=== PATIENT | female | born 1985 | race Caucasian/White ===

== ENCOUNTER 2016-11-16 23:28 | Emergency (ER) | payer MEDICAID ==
[~2016-11-16] VITALS: Ht 167.6 cm; Wt 74.7 kg
[~2016-11-16 23:28] MED LIST: ALBU0.63 NEB; AMOX-291 PO; ESOM20CA PO; OMEP20CA9; OMEP20CA9 PO; PREN1TAB27 PO
[2016-11-16 23:32] VITALS: BP 122/85
== END 2016-11-17 01:19 | disposition home or self-care (01) ==
LOC: ED 23:59
DX: F41.1 Generalized anxiety disorder (principal); J45.909 Unspecified asthma, uncomplicated
CPT/HCPCS: 93005; 99284

== ENCOUNTER 2017-01-27 01:37 | Emergency (ER) | payer MEDICAID ==
[~2017-01-27] VITALS: Ht 167.6 cm; Wt 73.7 kg
[2017-01-27 02:55] VITALS: BP 108/69
== END 2017-01-27 04:46 | disposition home or self-care (01) ==
LOC: ED 04:45
DX: J20.9 Acute bronchitis, unspecified (principal); F17.210 Nicotine dependence, cigarettes, uncomplicated; K21.9 Gastro-esophageal reflux disease without esophagitis
CPT/HCPCS: 71020; 93005; 99284

== ENCOUNTER 2017-05-12 00:42 | Emergency (ER) | payer MEDICAID ==
[~2017-05-12] VITALS: Ht 167.6 cm; Wt 73.0 kg
[2017-05-12] MEDS ORDERED: OMEP20TA62 PO (01:06)
[2017-05-12 02:56] VITALS: BP 103/60
== END 2017-05-12 02:56 | disposition home or self-care (01) ==
LOC: ED 02:04
DX: R05 Cough (principal); K21.9 Gastro-esophageal reflux disease without esophagitis; Z90.49 Acquired absence of other specified parts of digestive tract
CPT/HCPCS: 71020; 93005; 99284

== ENCOUNTER 2017-06-02 00:45 | Emergency (ER) | payer MEDICAID ==
[~2017-06-02] VITALS: Ht 167.6 cm; Wt 72.3 kg
[~2017-06-02 00:45] MED LIST changes: +OMEP20TA62 PO
[2017-06-02 00:48] VITALS: BP 128/88
[2017-06-02] MEDS ORDERED: LORazepam 1MG TABLET ONE (01:17)
[2017-06-02] MEDS ORDERED: LORazepam 1MG TABLET PO ONE (01:30)
== END 2017-06-02 01:43 | disposition home or self-care (01) ==
LOC: ED 01:20
DX: F41.1 Generalized anxiety disorder (principal); R06.4 Hyperventilation; F17.200 Nicotine dependence, unspecified, uncomplicated
CPT/HCPCS: 99283

== ENCOUNTER 2017-06-29 03:37 | Emergency (ER) | payer MEDICAID ==
[~2017-06-29] VITALS: Ht 165.1 cm; Wt 72.0 kg
[2017-06-29 06:25] VITALS: BP 102/65
== END 2017-06-29 06:26 | disposition home or self-care (01) ==
LOC: ED 03:57
DX: R06.00 Dyspnea, unspecified (principal); F41.1 Generalized anxiety disorder; K21.9 Gastro-esophageal reflux disease without esophagitis; J45.909 Unspecified asthma, uncomplicated; Z90.49 Acquired absence of other specified parts of digestive tract
CPT/HCPCS: 71020; 93005; 99284

== ENCOUNTER 2017-07-09 15:27 | Emergency (ER) | payer MEDICAID ==
[~2017-07-09] VITALS: Ht 165.1 cm; Wt 69.3 kg
[2017-07-09 15:35] VITALS: BP 120/83
[2017-07-09] MEDS ORDERED: ALBUTEROL/IPRATROPIUM 2.5MG/0.5MG, 3 ML NPPB ONE ×2 (16:00→17:00)
[2017-07-09] MEDS ORDERED: ALBUTEROL/IPRATROPIUM 2.5MG/0.5MG, 3 ML ONE (16:58)
== END 2017-07-09 17:21 | disposition home or self-care (01) ==
LOC: ED 17:11
DX: J98.01 Acute bronchospasm (principal); F41.1 Generalized anxiety disorder; J44.9 Chronic obstructive pulmonary disease, unspecified; K21.9 Gastro-esophageal reflux disease without esophagitis; Z87.891 Personal history of nicotine dependence
CPT/HCPCS: 71020; 94640; 99284; J7512

== ENCOUNTER 2017-07-09 22:23 | Emergency (ER) | payer MEDICAID ==
[~2017-07-09] VITALS: Ht 162.6 cm; Wt 69.9 kg
[2017-07-09 22:30] VITALS: BP 110/70
[2017-07-10] MEDS ORDERED: LORATADINE 10 MG TABLET PO ONE
== END 2017-07-10 00:15 | disposition home or self-care (01) ==
LOC: ED 23:44
DX: J20.9 Acute bronchitis, unspecified (principal); J45.909 Unspecified asthma, uncomplicated; K21.9 Gastro-esophageal reflux disease without esophagitis; F17.200 Nicotine dependence, unspecified, uncomplicated; Z90.49 Acquired absence of other specified parts of digestive tract
CPT/HCPCS: 93005; 99283

== ENCOUNTER 2017-07-25 00:11 | Emergency (ER) | payer MEDICAID ==
[~2017-07-25] VITALS: Ht 165.1 cm; Wt 70.9 kg
[2017-07-25] MEDS ORDERED: MAALOX/HYOSCYAMINE/LIDOCAINE 45 ML BTL ONE (02:58)
[2017-07-25 03:00] VITALS: BP 100/54
[2017-07-25] MEDS ORDERED: MAALOX/HYOSCYAMINE/LIDOCAINE 45 ML BTL PO ONE (03:00)
== END 2017-07-25 04:00 | disposition home or self-care (01) ==
LOC: ED 02:01
DX: K21.9 Gastro-esophageal reflux disease without esophagitis (principal); Z90.49 Acquired absence of other specified parts of digestive tract; R07.89 Other chest pain; F17.210 Nicotine dependence, cigarettes, uncomplicated
CPT/HCPCS: 93005; 99283

== ENCOUNTER 2017-08-26 06:25 | Emergency (ER) | payer MEDICAID ==
[~2017-08-26] VITALS: Ht 165.1 cm; Wt 73.3 kg
[2017-08-26] MEDS ORDERED: ONDANSETRON 2MG/ML, 2ML IVPush ONE (07:30)
[2017-08-26] MEDS ORDERED: MORPHINE SULFATE 4 MG/ML, 1ML IVPush PRN (07:30)
[2017-08-26] MEDS ORDERED: SODIUM CHLORIDE FLUSH 10ML SYR IVF ONE (07:30)
[2017-08-26] MEDS ORDERED: SODIUM CHLORIDE 0.9% 1,000ML IVBOLUS ONE (07:30)
[2017-08-26] MEDS ORDERED: MORPHINE SULFATE 4 MG/ML, 1ML ONE (07:48)
[2017-08-26] MEDS ORDERED: ONDANSETRON 2MG/ML, 2ML ONE (07:49)
[2017-08-26 07:52] LABS: BASOPHILS # (AUTO) 0.05 x10^3/uL (0-0.1); BASOPHILS % (AUTO) 1 % (0-1); EOSINOPHILS % (AUTO) 2 % (1-7); LYMPHOCYTES # (AUTO) 3.78 x10^3/uL (1-3.4); LYMPHOCYTES % (AUTO) 37 % (22-44); MD NO; MEAN CORPUSCULAR HEMOGLOBIN 30.1 pg (27.0-34.8); MEAN CORPUSCULAR HGB CONC 33.7 g/dL (32.4-35.8); MEAN CORPUSCULAR VOLUME 89.3 fL (80-100); MONOCYTES # (AUTO) 0.77 x10^3/uL (0.2-0.8); MONOCYTES % (AUTO) 7 % (2-9); NEUTROPHILS # (AUTO) 5.52 x10^3/uL (1.8-6.8); NEUTROPHILS % (AUTO) 54 % (42-75); PLATELET COUNT 231 x10^3/uL (130-400); RED BLOOD COUNT 4.49 x10^6/uL (3.82-5.3)
[2017-08-26 07:57] LABS: HCG UR SG 1.026 (1.003-1.030); MICROSCOPIC AUTO
[2017-08-26 08:01] LABS: CULTURE INDICATED? YES
[2017-08-26 08:05] LABS: ALANINE AMINOTRANSFERASE 29 U/L (12-78); ALBUMIN 3.6 g/dL (3.4-5.0); ANION GAP 4 mmol/L (5-15); CALCIUM 8.6 mg/dL (8.5-10.1); CHLORIDE 109 mmol/L (98-107)
[2017-08-26 08:08] LABS: ALKALINE PHOSPHATASE 59 U/L (45-117); BILIRUBIN,TOTAL 0.2 mg/dL (0.2-1.0); CREATININE 0.65 mg/dL (0.55-1.02); TOTAL PROTEIN 6.9 g/dL (6.4-8.2)
[2017-08-26] MEDS ORDERED: CEFTRIAXONE PMX 1GM/50ML 50 ML ONE (09:22)
[2017-08-26] MEDS ORDERED: CEFTRIAXONE PMX 1GM/50ML 50 ML IV ONE (09:30)
[2017-08-26 10:29] VITALS: BP 100/66
== END 2017-08-26 10:54 | disposition home or self-care (01) ==
LOC: ED 09:30
DX: N30.90 Cystitis, unspecified without hematuria (principal); K21.9 Gastro-esophageal reflux disease without esophagitis; F17.200 Nicotine dependence, unspecified, uncomplicated; Z90.49 Acquired absence of other specified parts of digestive tract
CPT/HCPCS: 36415; 74021; 76770; 80053; 81001; 81025; 83690; 85025; 87086; 96365; 96375; 99285; J0696; J2405; J7030

== ENCOUNTER 2017-10-29 03:01 | Emergency (ER) | payer MEDICAID ==
[~2017-10-29] VITALS: Ht 165.1 cm; Wt 72.9 kg
[2017-10-29] MEDS ORDERED: MAALOX/HYOSCYAMINE/LIDOCAINE 45 ML BTL PO ONE (03:30)
[2017-10-29] MEDS ORDERED: PANTOPRAZOLE 20MG TABLET PO ONE (03:30)
[2017-10-29] MEDS ORDERED: PANTOPRAZOLE 20MG TABLET ONE (03:33)
[2017-10-29] MEDS ORDERED: MAALOX/HYOSCYAMINE/LIDOCAINE 45 ML BTL ONE (03:33)
[2017-10-29 03:37] VITALS: BP 96/63
== END 2017-10-29 03:56 | disposition home or self-care (01) ==
LOC: ED 03:30
DX: K21.9 Gastro-esophageal reflux disease without esophagitis (principal); J45.909 Unspecified asthma, uncomplicated; Z90.49 Acquired absence of other specified parts of digestive tract; F17.210 Nicotine dependence, cigarettes, uncomplicated
CPT/HCPCS: 93005; 99283

== ENCOUNTER 2017-12-01 12:58 | Emergency (ER) | payer MEDICAID ==
[~2017-12-01] VITALS: Ht 165.1 cm; Wt 72.2 kg
[2017-12-01 13:05] VITALS: BP 114/80
[2017-12-01 13:36] LABS: CULTURE INDICATED? NO; MICROSCOPIC NOT IND
== END 2017-12-01 16:32 | disposition home or self-care (01) ==
LOC: ED 14:10
DX: R10.9 Unspecified abdominal pain (principal); K21.9 Gastro-esophageal reflux disease without esophagitis
CPT/HCPCS: 36415; 74176; 81003; 84703; 99285

== ENCOUNTER 2018-01-18 22:17 | Emergency (ER) | payer MEDICAID ==
[~2018-01-18] VITALS: Ht 165.1 cm; Wt 73.5 kg
[2018-01-18 22:18] VITALS: BP 117/81
[2018-01-18] MEDS ORDERED: ALBUTEROL SULFATE 2.5 MG/3 ML ONE (22:53)
[2018-01-18] MEDS ORDERED: ALBUTEROL SULFATE 2.5 MG/3 ML NPPB ONE (23:00)
== END 2018-01-19 00:09 | disposition home or self-care (01) ==
LOC: ED 23:59
DX: J45.20 Mild intermittent asthma, uncomplicated (principal); J30.2 Other seasonal allergic rhinitis; Z90.49 Acquired absence of other specified parts of digestive tract
CPT/HCPCS: 94640; 99283; J7613

== ENCOUNTER 2018-04-28 23:28 | Emergency (ER) | payer MEDICAID ==
[~2018-04-28] VITALS: Ht 165.1 cm; Wt 75.0 kg
[2018-04-29 00:23] VITALS: BP 95/50
[2018-04-29] MEDS ORDERED: MAALOX/HYOSCYAMINE/LIDOCAINE 45 ML BTL PO ONE (00:30)
[2018-04-29] MEDS ORDERED: MAALOX/HYOSCYAMINE/LIDOCAINE 45 ML BTL ONE (00:43)
== END 2018-04-29 02:04 | disposition home or self-care (01) ==
LOC: ED 23:59
DX: K21.9 Gastro-esophageal reflux disease without esophagitis (principal); R05 Cough; R09.81 Nasal congestion; J45.909 Unspecified asthma, uncomplicated; F17.200 Nicotine dependence, unspecified, uncomplicated; Z90.89 Acquired absence of other organs; Z90.49 Acquired absence of other specified parts of digestive tract
CPT/HCPCS: 71046; 93005; 99284

== ENCOUNTER 2018-08-10 21:27 | Emergency (ER) | payer MEDICAID ==
[~2018-08-10] VITALS: Ht 165.1 cm; Wt 76.7 kg
[2018-08-10 21:29] VITALS: BP 118/74
[2018-08-10] MEDS ORDERED: ALBUTEROL/IPRATROPIUM 2.5MG/0.5MG, 3 ML NPPB PRN (22:00)
[2018-08-10] MEDS ORDERED: ALBUTEROL/IPRATROPIUM 2.5MG/0.5MG, 3 ML ONE (22:01)
[2018-08-10] MEDS ORDERED: PENICILLIN VK 500MG TABLET ONE (22:49)
== END 2018-08-10 23:01 | disposition home or self-care (01) ==
LOC: ED 22:02
DX: J06.9 Acute upper respiratory infection, unspecified (principal); Z90.49 Acquired absence of other specified parts of digestive tract; F17.210 Nicotine dependence, cigarettes, uncomplicated
CPT/HCPCS: 71046; 94640; 99283; J7512

== ENCOUNTER 2018-09-01 05:12 | Emergency (ER) | payer MEDICAID ==
[~2018-09-01] VITALS: Ht 165.1 cm; Wt 77.2 kg
[2018-09-01] MEDS ORDERED: MAALOX/HYOSCYAMINE/LIDOCAINE 45 ML BTL PO ONE (05:30)
[2018-09-01] MEDS ORDERED: FAMOTIDINE 20 MG TABLET PO ONE (05:30)
--- NOTE | 2018-09-01 05:31 | NUR ---
"I HAVE A HIATAL HERNIA. I AM HAVING CENTER CHEST PAIN AND BACK PAIN. I CAN'T SLEEP." PER TRIAGE NOTE
[2018-09-01] MEDS ORDERED: MAALOX/HYOSCYAMINE/LIDOCAINE 45 ML BTL ONE (05:47)
[2018-09-01] MEDS ORDERED: FAMOTIDINE 20 MG TABLET ONE (05:47)
--- NOTE | 2018-09-01 05:51 | NUR ---
GIVEN MEDS PER MD ORDER
[2018-09-01 05:56] LABS: BASOPHILS # (AUTO) 0.14 x10^3/uL (0-0.1); BASOPHILS % (AUTO) 1 % (0-1); EOSINOPHILS # (AUTO) 0.04 x10^3/uL (0-0.4); EOSINOPHILS % (AUTO) 0 % (1-7); LYMPHOCYTES % (AUTO) 30 % (22-44); MD NO; MEAN CORPUSCULAR HEMOGLOBIN 30.7 pg (27.0-34.8); MEAN CORPUSCULAR HGB CONC 34.5 g/dL (32.4-35.8); MEAN CORPUSCULAR VOLUME 88.8 fL (80-100); MONOCYTES # (AUTO) 0.92 x10^3/uL (0.2-0.8); MONOCYTES % (AUTO) 7 % (2-9); NEUTROPHILS # (AUTO) 8.02 x10^3/uL (1.8-6.8); NEUTROPHILS % (AUTO) 62 % (42-75); PLATELET COUNT 241 x10^3/uL (130-400); RED BLOOD COUNT 4.52 x10^6/uL (3.82-5.3); RED CELL DISTRIBUTION WIDTH 13.1 % (9.6-15.2)
[2018-09-01 06:09] LABS: ALANINE AMINOTRANSFERASE 69 U/L (12-78); ALBUMIN 3.6 g/dL (3.4-5.0); ANION GAP 5 mmol/L (5-15); CALCIUM 8.5 mg/dL (8.5-10.1); CHLORIDE 111 mmol/L (98-107); CREATININE 0.53 mg/dL (0.55-1.02)
[2018-09-01 06:14] LABS: ALKALINE PHOSPHATASE 57 U/L (45-117); BILIRUBIN,TOTAL 0.3 mg/dL (0.2-1.0); TOTAL PROTEIN 7.1 g/dL (6.4-8.2); TROPONIN I < 0.015 ng/mL (0.000-0.045)
[2018-09-01] MEDS ORDERED: OMNIPAQUE 350 MG/ML, 100ML BOTTLE ONE (07:04)
--- NOTE | 2018-09-01 07:09 | NUR ---
BEDSIDE REPORT FROM RODERICK ARNDT. PT IN CT.
[2018-09-01 07:46] VITALS: BP 103/59
== END 2018-09-01 08:47 | disposition home or self-care (01) ==
LOC: ED 06:15
DX: K29.00 Acute gastritis without bleeding (principal); K21.9 Gastro-esophageal reflux disease without esophagitis; J45.909 Unspecified asthma, uncomplicated; F17.200 Nicotine dependence, unspecified, uncomplicated
CPT/HCPCS: 36415; 74021; 74177; 80053; 83690; 84484; 84703; 85025; 86677; 93005; 99284; Q9967

== ENCOUNTER 2018-10-09 06:26 | Emergency (ER) | payer MEDICAID ==
[~2018-10-09] VITALS: Ht 165.1 cm; Wt 77.0 kg
--- NOTE | 2018-10-09 06:41 | NUR ---
PLEASANT LADY HERE REPORTING THAT FOR THE LAST SEVERAL DAYS SHE HAS HAD A COUGH THAT IS OCCASSIONALLY PRODUCTIVE, UNKNOWN COLOR, ALSO DESCRIBES WHEEZING. CURRENTLY NO RESP DISTRESS.
--- NOTE | 2018-10-09 06:56 | NUR ---
Report from Linda ARNDT.
[2018-10-09 07:35] LABS: BASOPHILS # (AUTO) 0.04 x10^3/uL (0-0.1); BASOPHILS % (AUTO) 1 % (0-1); EOSINOPHILS # (AUTO) 0.17 x10^3/uL (0-0.4); EOSINOPHILS % (AUTO) 2 % (1-7); LYMPHOCYTES # (AUTO) 2.96 x10^3/uL (1-3.4); LYMPHOCYTES % (AUTO) 33 % (22-44); MD NO; MEAN CORPUSCULAR HEMOGLOBIN 29.6 pg (27.0-34.8); MEAN CORPUSCULAR HGB CONC 33.8 g/dL (32.4-35.8); MEAN CORPUSCULAR VOLUME 87.7 fL (80-100); MEAN PLATELET VOLUME 8.1 fL (7.4-10.4); MONOCYTES # (AUTO) 0.67 x10^3/uL (0.2-0.8); MONOCYTES % (AUTO) 8 % (2-9); NEUTROPHILS # (AUTO) 5.01 x10^3/uL (1.8-6.8); NEUTROPHILS % (AUTO) 57 % (42-75); PLATELET COUNT 225 x10^3/uL (130-400); RED BLOOD COUNT 4.72 x10^6/uL (3.82-5.3); RED CELL DISTRIBUTION WIDTH 13.2 % (9.6-15.2)
--- NOTE | 2018-10-09 07:38 | NUR ---
Pt is resting in bed with eyes closed, respirations equal and non labored. NAD. Pt is connected to the monitor. Call light within reach.
[2018-10-09 07:44] LABS: ALBUMIN 3.4 g/dL (3.4-5.0); ANION GAP 6 mmol/L (5-15); CHLORIDE 111 mmol/L (98-107); CREATININE 0.73 mg/dL (0.55-1.02)
[2018-10-09 07:48] LABS: TROPONIN I < 0.015 ng/mL (0.000-0.045)
[2018-10-09 08:33] VITALS: BP 99/58
--- NOTE | 2018-10-09 08:33 | NUR ---
Pt is resting in bed with eyes closed, respirations equal and non labored. NAD. Pt is connected to the monitor. Call light within reach.
--- NOTE | 2018-10-09 08:58 | NUR ---
Patient given discharge instructions and they have confirmed that they understand the instructions. Patient ambulatory with steady gait.
== END 2018-10-09 08:59 | disposition home or self-care (01) ==
LOC: ED 07:51
DX: R07.89 Other chest pain (principal); R06.00 Dyspnea, unspecified; K21.9 Gastro-esophageal reflux disease without esophagitis; Z90.89 Acquired absence of other organs; Z90.49 Acquired absence of other specified parts of digestive tract
CPT/HCPCS: 36415; 71046; 80048; 82040; 84484; 85025; 93005; 99284

== ENCOUNTER 2019-03-07 22:59 | Emergency (ER) | payer MEDICAID, OTHER ==
[~2019-03-07] VITALS: Ht 165.1 cm; Wt 78.8 kg
[2019-03-08 00:33] VITALS: BP 97/57
== END 2019-03-08 00:35 ==
LOC: ED 03-08 00:10
DX: J45.909 Unspecified asthma, uncomplicated (principal); F17.200 Nicotine dependence, unspecified, uncomplicated; K21.9 Gastro-esophageal reflux disease without esophagitis; Z90.49 Acquired absence of other specified parts of digestive tract
CPT/HCPCS: 36415; 71046; 80048; 82040; 85025; 93005; 94640; 99284; J7613

== ENCOUNTER 2019-03-08 22:09 | Emergency (ER) | payer OTHER ==
[~2019-03-08] VITALS: Ht 165.1 cm; Wt 78.9 kg
[2019-03-08 22:12] VITALS: BP 120/75
== END 2019-03-09 01:00 | disposition home or self-care (01) ==
LOC: ED 23:59
DX: J98.01 Acute bronchospasm (principal); F17.200 Nicotine dependence, unspecified, uncomplicated
CPT/HCPCS: 94640; 94664; 99283; J7512; J7613; J7644

== ENCOUNTER 2019-05-18 01:57 | Emergency (ER) | payer OTHER ==
[~2019-05-18] VITALS: Ht 167.6 cm; Wt 80.0 kg
[2019-05-18] MEDS ORDERED: MAALOX/HYOSCYAMINE/LIDOCAINE 45 ML BTL ONE (02:54)
[2019-05-18] MEDS ORDERED: MAALOX/HYOSCYAMINE/LIDOCAINE 45 ML BTL PO ONE (03:00)
--- NOTE | 2019-05-18 03:00 | NUR ---
RN to bedside, patient has already been seen by primary provider, but no orders placed at the time. Patient laying on right side. Alert, oriented. Patient reports shortness of breath with discomfort. Auscultating breath sounds patient reports feeling sternal pain at maximum inhale. Breath sounds are clear. patient attached to monitor, VSS. While transcribing clinical screen RN noted orders. Informed patient of labs, imaging and medications. RN to bedside to adminstered prescribed medication (see MAR) and informed patient she would see either a identification technician or a oil and gas field technician. At this time identification technician arrove to bedside. Patient aware. Awaiting lab results and imaging.
[2019-05-18 03:07] LABS: BASOPHILS # (AUTO) 0.05 x10^3/uL (0-0.1); BASOPHILS % (AUTO) 1 % (0-1); EOSINOPHILS # (AUTO) 0.12 x10^3/uL (0-0.4); EOSINOPHILS % (AUTO) 1 % (1-7); LYMPHOCYTES # (AUTO) 4.16 x10^3/uL (1-3.4); LYMPHOCYTES % (AUTO) 39 % (22-44); MD NO; MEAN CORPUSCULAR HEMOGLOBIN 30.7 pg (27.0-34.8); MEAN CORPUSCULAR HGB CONC 33.6 g/dL (32.4-35.8); MEAN CORPUSCULAR VOLUME 91.4 fL (80-100); MEAN PLATELET VOLUME 7.8 fL (7.4-10.4); MONOCYTES # (AUTO) 0.79 x10^3/uL (0.2-0.8); MONOCYTES % (AUTO) 7 % (2-9); NEUTROPHILS # (AUTO) 5.63 x10^3/uL (1.8-6.8); NEUTROPHILS % (AUTO) 52 % (42-75); PLATELET COUNT 235 x10^3/uL (130-400); RED BLOOD COUNT 4.36 x10^6/uL (3.82-5.3); RED CELL DISTRIBUTION WIDTH 12.9 % (9.6-15.2)
[2019-05-18 03:17] LABS: ALBUMIN 3.1 g/dL (3.4-5.0); ANION GAP 5 mmol/L (5-15); CALCIUM 7.9 mg/dL (8.5-10.1); CHLORIDE 112 mmol/L (98-107)
--- NOTE | 2019-05-18 03:18 | NUR ---
resting comfortably, imaging techs at bedside.
[2019-05-18 03:23] LABS: ALANINE AMINOTRANSFERASE 20 U/L (12-78); ALKALINE PHOSPHATASE 58 U/L (45-117); BILIRUBIN,TOTAL 0.2 mg/dL (0.2-1.0); CREATININE 0.71 mg/dL (0.55-1.02); TOTAL PROTEIN 6.4 g/dL (6.4-8.2)
[2019-05-18 04:08] VITALS: BP 103/68
--- NOTE | 2019-05-18 04:09 | NUR ---
Patient sleeping. Awaiting reevaluation by provider.
== END 2019-05-18 04:46 | disposition home or self-care (01) ==
LOC: ED 04:35
DX: K21.9 Gastro-esophageal reflux disease without esophagitis (principal); R10.13 Epigastric pain; R11.0 Nausea; K44.9 Diaphragmatic hernia without obstruction or gangrene; F17.200 Nicotine dependence, unspecified, uncomplicated; Z90.49 Acquired absence of other specified parts of digestive tract; J45.909 Unspecified asthma, uncomplicated
CPT/HCPCS: 36415; 71045; 80053; 83690; 84703; 85025; 93005; 99284

== ENCOUNTER 2019-05-26 05:30 | Emergency (ER) | payer OTHER ==
[~2019-05-26] VITALS: Ht 165.1 cm; Wt 83.3 kg
--- NOTE | 2019-05-26 05:45 | NUR ---
PT IN [facility] IN [facility]. DR CASTREJON AT FOR PT HISTORY AND ASSESSMENT.
[2019-05-26] MEDS ORDERED: MAALOX/HYOSCYAMINE/LIDOCAINE 45 ML BTL ONE (06:00)
[2019-05-26] MEDS ORDERED: FAMOTIDINE 20 MG TABLET PO ONE (06:00)
[2019-05-26] MEDS ORDERED: MAALOX/HYOSCYAMINE/LIDOCAINE 45 ML BTL PO ONE (06:00)
[2019-05-26] MEDS ORDERED: FAMOTIDINE 20 MG TABLET ONE (06:00)
--- NOTE | 2019-05-26 06:07 | NUR ---
PT MEDICATED PER MAR. PT VSS AT THIS TIME
[2019-05-26 06:10] LABS: BASOPHILS # (AUTO) 0.05 x10^3/uL (0-0.1); BASOPHILS % (AUTO) 1 % (0-1); EOSINOPHILS # (AUTO) 0.11 x10^3/uL (0-0.4); EOSINOPHILS % (AUTO) 1 % (1-7); LYMPHOCYTES # (AUTO) 3.29 x10^3/uL (1-3.4); LYMPHOCYTES % (AUTO) 32 % (22-44); MD NO; MEAN CORPUSCULAR HEMOGLOBIN 30.5 pg (27.0-34.8); MEAN CORPUSCULAR VOLUME 89.6 fL (80-100); MEAN PLATELET VOLUME 7.4 fL (7.4-10.4); MONOCYTES # (AUTO) 0.82 x10^3/uL (0.2-0.8); MONOCYTES % (AUTO) 8 % (2-9); NEUTROPHILS # (AUTO) 6.04 x10^3/uL (1.8-6.8); NEUTROPHILS % (AUTO) 59 % (42-75); PLATELET COUNT 218 x10^3/uL (130-400); RED BLOOD COUNT 4.62 x10^6/uL (3.82-5.3); RED CELL DISTRIBUTION WIDTH 12.8 % (9.6-15.2)
[2019-05-26 06:22] LABS: ALANINE AMINOTRANSFERASE 22 U/L (12-78); ALBUMIN 3.3 g/dL (3.4-5.0); ANION GAP 4 mmol/L (5-15); CALCIUM 8.1 mg/dL (8.5-10.1); CHLORIDE 109 mmol/L (98-107); CREATININE 0.79 mg/dL (0.55-1.02)
[2019-05-26 06:27] LABS: ALKALINE PHOSPHATASE 69 U/L (45-117); BILIRUBIN,TOTAL 0.2 mg/dL (0.2-1.0); TOTAL PROTEIN 6.8 g/dL (6.4-8.2); TROPONIN I < 0.015 ng/mL (0.000-0.045)
--- NOTE | 2019-05-26 06:32 | NUR ---
PT TO XRAY AT THIS TIME.
--- NOTE | 2019-05-26 06:55 | NUR ---
REPORT RECEIVED FROM YRIS LEÓN. PLAN OF CARE DISCUSSED.
[2019-05-26 07:02] VITALS: BP 108/59
== END 2019-05-26 07:27 | disposition home or self-care (01) ==
LOC: ED 06:01
DX: K21.0 Gastro-esophageal reflux disease with esophagitis (principal); R07.89 Other chest pain; F17.210 Nicotine dependence, cigarettes, uncomplicated; J45.909 Unspecified asthma, uncomplicated
CPT/HCPCS: 36415; 71045; 80053; 83690; 84484; 84703; 85025; 85379; 93005; 99284

== ENCOUNTER 2019-05-26 17:24 | Emergency (ER) | payer OTHER ==
[~2019-05-26] VITALS: Ht 165.1 cm; Wt 79.2 kg
[2019-05-26 17:40] VITALS: BP 122/82
[2019-05-26] MEDS ORDERED: DIPH,PERTUSS(ACELL),TET VAC/PF 0.5 ML IM-VACC ONE ×2 (18:00→18:10)
--- NOTE | 2019-05-26 18:57 | NUR ---
Patient/Caregiver given discharge instructions and they have confirmed that they understand the instructions. Patient ambulatory with steady gait.
== END 2019-05-26 18:58 | disposition home or self-care (01) ==
LOC: ED 18:52
DX: S61.211A Laceration without foreign body of left index finger without damage to nail, initial encounter (principal); F17.200 Nicotine dependence, unspecified, uncomplicated; W23.0XXA Caught, crushed, jammed, or pinched between moving objects, initial encounter; Y93.89 Activity, other specified; Y92.410 Unspecified street and highway as the place of occurrence of the external cause; Y99.8 Other external cause status
CPT/HCPCS: 12041; 90471; 90715; 99284

== ENCOUNTER 2019-06-20 01:13 | Emergency (ER) | payer OTHER ==
[~2019-06-20] VITALS: Ht 165.1 cm; Wt 81.5 kg
[2019-06-20 01:17] VITALS: BP 127/88
[2019-06-20] MEDS ORDERED: ONDANSETRON ODT 4 MG ONE (01:57)
[2019-06-20] MEDS ORDERED: KETOROLAC 60 MG/2 ML ONE (01:57)
[2019-06-20] MEDS ORDERED: KETOROLAC 60 MG/2 ML IM ONE (02:00)
[2019-06-20] MEDS ORDERED: ONDANSETRON ODT 4 MG PO ONE (02:00)
[2019-06-20 02:20] LABS: BASOPHILS % (AUTO) 1 % (0-1); EOSINOPHILS # (AUTO) 0.11 x10^3/uL (0-0.4); EOSINOPHILS % (AUTO) 1 % (1-7); LYMPHOCYTES # (AUTO) 4.52 x10^3/uL (1-3.4); LYMPHOCYTES % (AUTO) 40 % (22-44); MD NO; MEAN CORPUSCULAR HEMOGLOBIN 30.6 pg (27.0-34.8); MEAN CORPUSCULAR HGB CONC 33.5 g/dL (32.4-35.8); MEAN CORPUSCULAR VOLUME 91.2 fL (80-100); MEAN PLATELET VOLUME 7.8 fL (7.4-10.4); MONOCYTES # (AUTO) 0.74 x10^3/uL (0.2-0.8); MONOCYTES % (AUTO) 7 % (2-9); NEUTROPHILS # (AUTO) 5.71 x10^3/uL (1.8-6.8); NEUTROPHILS % (AUTO) 51 % (42-75); PLATELET COUNT 259 x10^3/uL (130-400); RED BLOOD COUNT 4.72 x10^6/uL (3.82-5.3); RED CELL DISTRIBUTION WIDTH 13.3 % (9.6-15.2)
[2019-06-20 02:28] LABS: ALANINE AMINOTRANSFERASE 37 U/L (12-78); ALBUMIN 3.7 g/dL (3.4-5.0); ANION GAP 4 mmol/L (5-15); CALCIUM 8.8 mg/dL (8.5-10.1); CHLORIDE 106 mmol/L (98-107)
[2019-06-20 02:33] LABS: ALKALINE PHOSPHATASE 65 U/L (45-117); BILIRUBIN,TOTAL 0.2 mg/dL (0.2-1.0); TOTAL PROTEIN 7.4 g/dL (6.4-8.2)
== END 2019-06-20 03:34 | disposition home or self-care (01) ==
LOC: ED 02:23
DX: K44.9 Diaphragmatic hernia without obstruction or gangrene (principal); R10.13 Epigastric pain; K21.9 Gastro-esophageal reflux disease without esophagitis; F17.200 Nicotine dependence, unspecified, uncomplicated; Z90.49 Acquired absence of other specified parts of digestive tract
CPT/HCPCS: 36415; 80053; 83690; 84703; 85025; 93005; 96372; 99284; J1885; Q0162

== ENCOUNTER 2019-07-06 05:10 | Emergency (ER) | payer OTHER ==
[~2019-07-06] VITALS: Ht 167.6 cm; Wt 79.5 kg
[2019-07-06 05:16] VITALS: BP 93/66
--- NOTE | 2019-07-06 05:29 | NUR ---
WOKE UP FEELING HEAVINESS IN CHEST AND WHEEZING WITH SOB. HAS FELT THIS WAY FOR MONTHS. STATED TODAY, FELT WORSE. C/O PRODUCTIVE COUGH
[2019-07-06] MEDS ORDERED: ALBUTEROL SULFATE 2.5 MG/3 ML ONE (05:50)
[2019-07-06] MEDS ORDERED: ALBUTEROL SULFATE 2.5 MG/3 ML NPPB ONE (06:00)
== END 2019-07-06 06:30 | disposition home or self-care (01) ==
LOC: ED 06:20
DX: F17.200 Nicotine dependence, unspecified, uncomplicated (principal); J45.909 Unspecified asthma, uncomplicated; K21.9 Gastro-esophageal reflux disease without esophagitis; R07.89 Other chest pain
CPT/HCPCS: 71045; 93005; 94640; 99283; J7613

== ENCOUNTER 2019-08-04 14:30 | Emergency (ER) | payer OTHER ==
[~2019-08-04] VITALS: Ht 167.6 cm; Wt 80.2 kg
[2019-08-04 14:36] VITALS: BP 109/74
--- NOTE | 2019-08-04 17:48 | NUR ---
PT TO ROOM FROM LOBBY
[2019-08-04] MEDS ORDERED: MAALOX/HYOSCYAMINE/LIDOCAINE 45 ML BTL PO ONE (18:30)
[2019-08-04] MEDS ORDERED: MAALOX/HYOSCYAMINE/LIDOCAINE 45 ML BTL ONE (18:51)
--- NOTE | 2019-08-04 19:56 | NUR ---
Patient given discharge instructions and Rx, they have confirmed that they understand the instructions. Patient ambulatory with steady gait.
== END 2019-08-04 19:58 | disposition home or self-care (01) ==
LOC: ED 18:41
DX: J20.8 Acute bronchitis due to other specified organisms (principal); K21.9 Gastro-esophageal reflux disease without esophagitis; M94.0 Chondrocostal junction syndrome [Tietze]; F17.210 Nicotine dependence, cigarettes, uncomplicated; Z90.49 Acquired absence of other specified parts of digestive tract
CPT/HCPCS: 71046; 93005; 99283; 99406

== ENCOUNTER 2019-09-08 22:45 | Emergency (ER) | payer OTHER ==
[~2019-09-08] VITALS: Ht 165.1 cm; Wt 81.4 kg
--- NOTE | 2019-09-08 23:38 | NUR ---
Pt resting in gurney, c/o lower abd pain radiating to right back.
[2019-09-08 23:42] LABS: BASOPHILS # (AUTO) 0.02 x10^3/uL (0-0.1); BASOPHILS % (AUTO) 0 % (0-1); EOSINOPHILS # (AUTO) 0.22 x10^3/uL (0-0.4); EOSINOPHILS % (AUTO) 2 % (1-7); LYMPHOCYTES # (AUTO) 3.65 x10^3/uL (1-3.4); LYMPHOCYTES % (AUTO) 29 % (22-44); MD NO; MEAN CORPUSCULAR HEMOGLOBIN 30.1 pg (27.0-34.8); MEAN CORPUSCULAR VOLUME 88.5 fL (80-100); MONOCYTES # (AUTO) 0.86 x10^3/uL (0.2-0.8); MONOCYTES % (AUTO) 7 % (2-9); NEUTROPHILS # (AUTO) 7.65 x10^3/uL (1.8-6.8); NEUTROPHILS % (AUTO) 62 % (42-75); PLATELET COUNT 235 x10^3/uL (130-400); RED BLOOD COUNT 4.53 x10^6/uL (3.82-5.3); RED CELL DISTRIBUTION WIDTH 12.8 % (9.6-15.2)
[2019-09-08 23:46] LABS: HCG UR SG 1.023 (1.003-1.030); MICROSCOPIC NOT IND
[2019-09-08 23:48] LABS: CULTURE INDICATED? NO
[2019-09-08] MEDS ORDERED: ONDANSETRON 2MG/ML, 2ML ONE (23:51)
[2019-09-08] MEDS ORDERED: KETOROLAC 30 MG/1 ML ONE (23:51)
[2019-09-08 23:52] LABS: ANION GAP 6 mmol/L (5-15); CALCIUM 8.4 mg/dL (8.5-10.1); CHLORIDE 110 mmol/L (98-107); CREATININE 0.63 mg/dL (0.55-1.02)
--- NOTE | 2019-09-08 23:58 | NUR ---
Medicated per MAR.
[2019-09-09] MEDS ORDERED: ONDANSETRON 2MG/ML, 2ML IVPush ONE
[2019-09-09] MEDS ORDERED: KETOROLAC 30 MG/1 ML IVPush ONE
--- NOTE | 2019-09-09 00:23 | NUR ---
Pt to CT.
--- NOTE | 2019-09-09 00:53 | NUR ---
Sleeping, no obvious distress noted.
[2019-09-09 01:40] VITALS: BP 93/51
== END 2019-09-09 01:48 | disposition home or self-care (01) ==
LOC: ED 23:45
DX: R10.11 Right upper quadrant pain (principal); R10.31 Right lower quadrant pain; R11.2 Nausea with vomiting, unspecified; K21.9 Gastro-esophageal reflux disease without esophagitis; J45.909 Unspecified asthma, uncomplicated; F17.200 Nicotine dependence, unspecified, uncomplicated; Z90.49 Acquired absence of other specified parts of digestive tract
CPT/HCPCS: 36415; 74176; 80048; 81003; 81025; 85025; 96374; 96375; 99284; J1885; J2405

== ENCOUNTER 2019-12-06 16:58 | Emergency (ER) | payer MEDICAID, OTHER ==
[~2019-12-06] VITALS: Ht 167.6 cm; Wt 82.3 kg
[2019-12-06 17:01] VITALS: BP 107/75
--- NOTE | 2019-12-06 17:09 | NUR ---
PT AMBULATORY TO ROOM, STEADY GAIT.
--- NOTE | 2019-12-06 17:26 | NUR ---
ERP TO BEDSIDE, PT LAYING IN BED, CALM, NO SIGNS OF DISTRESS, WILL CONTINUE TO MONITOR.
[2019-12-06] MEDS ORDERED: ACETAMINOPHEN 500 MG TABLET ONE (17:51)
[2019-12-06] MEDS ORDERED: MAALOX/HYOSCYAMINE/LIDOCAINE 45 ML BTL ONE (17:51)
[2019-12-06 17:53] LABS: BASOPHILS # (AUTO) 0.07 x10^3/uL (0-0.1); BASOPHILS % (AUTO) 1 % (0-1); EOSINOPHILS # (AUTO) 0.14 x10^3/uL (0-0.4); EOSINOPHILS % (AUTO) 2 % (1-7); LYMPHOCYTES # (AUTO) 3.19 x10^3/uL (1-3.4); LYMPHOCYTES % (AUTO) 33 % (22-44); MD NO; MEAN CORPUSCULAR HEMOGLOBIN 30.5 pg (27.0-34.8); MEAN CORPUSCULAR HGB CONC 34.2 g/dL (32.4-35.8); MEAN CORPUSCULAR VOLUME 89.3 fL (80-100); MEAN PLATELET VOLUME 8.1 fL (7.4-10.4); MONOCYTES # (AUTO) 0.59 x10^3/uL (0.2-0.8); MONOCYTES % (AUTO) 6 % (2-9); NEUTROPHILS # (AUTO) 5.68 x10^3/uL (1.8-6.8); NEUTROPHILS % (AUTO) 59 % (42-75); PLATELET COUNT 257 x10^3/uL (130-400); RED BLOOD COUNT 4.65 x10^6/uL (3.82-5.3)
[2019-12-06 17:55] LABS: ALANINE AMINOTRANSFERASE 27 U/L (12-78); ALBUMIN 3.7 g/dL (3.4-5.0); ANION GAP 3 mmol/L (5-15); CALCIUM 9.4 mg/dL (8.5-10.1); CHLORIDE 109 mmol/L (98-107); CREATININE 0.71 mg/dL (0.55-1.02)
[2019-12-06] MEDS ORDERED: MAALOX/HYOSCYAMINE/LIDOCAINE 45 ML BTL PO ONE (18:00)
[2019-12-06] MEDS ORDERED: ACETAMINOPHEN 500 MG TABLET PO ONE (18:00)
--- NOTE | 2019-12-06 18:05 | NUR ---
PT AMBULATORY TO BATHROOM, STEADY GAIT.
[2019-12-06 18:06] LABS: ALKALINE PHOSPHATASE 62 U/L (45-117); BILIRUBIN,TOTAL 0.2 mg/dL (0.2-1.0); TOTAL PROTEIN 7.6 g/dL (6.4-8.2)
== END 2019-12-06 18:48 | disposition home or self-care (01) ==
LOC: ED 18:30
DX: R07.89 Other chest pain (principal); I10 Essential (primary) hypertension; K21.9 Gastro-esophageal reflux disease without esophagitis; J45.909 Unspecified asthma, uncomplicated; R00.0 Tachycardia, unspecified; Z90.49 Acquired absence of other specified parts of digestive tract
CPT/HCPCS: 36415; 71045; 80053; 83690; 84443; 85025; 93005; 99285

== ENCOUNTER 2020-01-25 13:35 | Emergency (ER) | payer MEDICAID ==
[~2020-01-25] VITALS: Ht 167.6 cm; Wt 80.7 kg
[2020-01-25] MEDS ORDERED: CETIRIZINE 10 MG TABLET PO ONE (14:30)
[2020-01-25] MEDS ORDERED: ACETAMINOPHEN 325 MG TABLET PO ONE (14:30)
[2020-01-25] MEDS ORDERED: PSEUDOEPHEDRINE 30 MG TABLET PO ONE (14:30)
--- NOTE | 2020-01-25 14:39 | NUR ---
medications requested from pharmacy
[2020-01-25] MEDS ORDERED: ACETAMINOPHEN 325 MG TABLET ONE (14:46)
--- NOTE | 2020-01-25 14:56 | NUR ---
Medicated per emar Provided with po fluids Updated on estimated poc
[2020-01-25 15:14] VITALS: BP 112/69
--- NOTE | 2020-01-25 15:14 | NUR ---
with reassessment patient reports dubon improved from 04/29 to 11/27 Provider made aware Tolerating po fluids
== END 2020-01-25 16:19 | disposition home or self-care (01) ==
LOC: ED 16:00
DX: G44.219 Episodic tension-type headache, not intractable (principal); J30.9 Allergic rhinitis, unspecified; R09.81 Nasal congestion; R05 Cough; R00.2 Palpitations; H92.09 Otalgia, unspecified ear; R20.0 Anesthesia of skin; F17.210 Nicotine dependence, cigarettes, uncomplicated; Z90.89 Acquired absence of other organs; Z90.49 Acquired absence of other specified parts of digestive tract
CPT/HCPCS: 99284

== ENCOUNTER 2020-06-21 12:14 | Emergency (ER) | payer MEDICAID ==
[~2020-06-21] VITALS: Ht 167.6 cm; Wt 80.4 kg
[2020-06-21] MEDS ORDERED: DEXAMETHASONE 4 MG TABLET PO ONE (13:00)
--- NOTE | 2020-06-21 14:07 | NUR ---
RESIDENT CARE MANAGER: PT TO ROOM FROM [facility]
--- NOTE | 2020-06-21 14:50 | NUR ---
assumed care of pt. pt here for cough and runny nose x2-3 weeks. pt reports that she has a hx of seasonal allergies, but that she has also been exposed to someone at work who is COVID+. pt is in no resp. distress. speaking full sentences without difficulty. resting in position of comfort. no family at bedside. pt has already been swabbed by provider pt to be medicated. pt updated on POC
[2020-06-21] MEDS ORDERED: DEXAMETHASONE 4 MG TABLET ONE (15:01)
[2020-06-21 15:26] VITALS: BP 125/77
== END 2020-06-21 15:30 | disposition home or self-care (01) ==
LOC: ED 13:51
DX: J06.9 Acute upper respiratory infection, unspecified (principal); Z20.828 Contact with and (suspected) exposure to other viral communicable diseases; R06.02 Shortness of breath; R05 Cough; B34.9 Viral infection, unspecified; M79.10 Myalgia, unspecified site; F17.210 Nicotine dependence, cigarettes, uncomplicated; R19.7 Diarrhea, unspecified; R50.9 Fever, unspecified; K21.9 Gastro-esophageal reflux disease without esophagitis; I10 Essential (primary) hypertension; J45.909 Unspecified asthma, uncomplicated; Z90.89 Acquired absence of other organs; Z90.49 Acquired absence of other specified parts of digestive tract
CPT/HCPCS: 71045; 87635; 99284; 99406

== ENCOUNTER 2020-12-30 13:32 | Emergency (ER) | payer MEDICAID ==
[~2020-12-30] VITALS: Ht 167.6 cm; Wt 83.5 kg
--- NOTE | 2020-12-30 13:55 | NUR ---
Pt able to give UA sample, clear, light yellow uop present, and tubed to lab. RN and PA assessments completed. Pt changed into gown, warm blanket provided, and call light in reach.
[2020-12-30] MEDS ORDERED: SODIUM CHLORIDE 0.9% 1,000ML IVBOLUS ONE (14:00)
[2020-12-30] MEDS ORDERED: MAALOX/HYOSCYAMINE/LIDOCAINE 45 ML BTL PO ONE (14:00)
[2020-12-30] MEDS ORDERED: SODIUM CHLORIDE FLUSH 10ML SYR IVF ONE (14:00)
[2020-12-30] MEDS ORDERED: FAMOTIDINE 20 MG/2 ML IVPush ONE (14:00)
[2020-12-30] MEDS ORDERED: ONDANSETRON 2MG/ML, 2ML IVPush ONE (14:00)
[2020-12-30] MEDS ORDERED: OMEP20TA62 PO (14:03)
[2020-12-30] MEDS ORDERED: MULT-508 PO (14:03)
--- NOTE | 2020-12-30 14:05 | NUR ---
US at bedside as RN setting up for IV start with blood draw. US tech states approximately 10 minutes for completion of his exam. Pt notified of RN return when US tech is done so lights can be turned on for IV start.
[2020-12-30] MEDS ORDERED: ONDANSETRON 2MG/ML, 2ML ONE (14:07)
[2020-12-30] MEDS ORDERED: FAMOTIDINE 20 MG/2 ML ONE (14:07)
[2020-12-30 14:23] LABS: MICROSCOPIC NOT IND
--- NOTE | 2020-12-30 14:35 | NUR ---
US result reviewed at bedside with pt. Pt aware of wait for UA and lab results before discussion with PA/MD will occur. Discussed possibility of CT today and pt seems open to the idea if suggested by MD.
--- NOTE | 2020-12-30 14:36 | NUR ---
IV started and labs drawn with start. Pt tolerated well. NS 1 liter bolus running well and IV meds given. Pt refused GI cocktail stating they make her have instant diarrhea.
[2020-12-30 14:50] LABS: BASOPHILS % (AUTO) 1 % (0-1); EOSINOPHILS % (AUTO) 1 % (1-7); LYMPHOCYTES % (AUTO) 26 % (22-44); MEAN CORPUSCULAR HEMOGLOBIN 30.4 pg (27.0-34.8); MEAN CORPUSCULAR HGB CONC 34.9 g/dL (32.4-35.8); MEAN PLATELET VOLUME 8.1 fL (7.4-10.4); MONOCYTES % (AUTO) 7 % (2-9); NEUTROPHILS % (AUTO) 65 % (42-75); PLATELET COUNT 243 x10^3/uL (130-400); RED BLOOD COUNT 4.86 x10^6/uL (3.82-5.3); RED CELL DISTRIBUTION WIDTH 13.4 % (9.6-15.2)
[2020-12-30 14:54] LABS: ALANINE AMINOTRANSFERASE 28 U/L (12-78); ALBUMIN 3.7 g/dL (3.4-5.0); ANION GAP 6 mmol/L (5-15); CALCIUM 9.1 mg/dL (8.5-10.1); CHLORIDE 108 mmol/L (98-107)
[2020-12-30 14:59] LABS: ALKALINE PHOSPHATASE 69 U/L (45-117); BILIRUBIN,TOTAL 0.3 mg/dL (0.2-1.0); TOTAL PROTEIN 7.6 g/dL (6.4-8.2)
--- NOTE | 2020-12-30 15:00 | NUR ---
Nausea resolved after medical sociologist on reassessment of pt.
--- NOTE | 2020-12-30 15:07 | NUR ---
Lab results reviewed and chart marked for recheck.
--- NOTE | 2020-12-30 15:13 | NUR ---
Pt saline locked to use the restroom then reconnected to NS bolus upon return to room. Pt notified of wait for MD arrival to discuss findings and suggested plan of care.
--- NOTE | 2020-12-30 15:29 | NUR ---
Note on ED board that MD is to see pt for further eval.
[2020-12-30 16:27] VITALS: BP 130/70
== END 2020-12-30 16:29 | disposition home or self-care (01) ==
LOC: ED 16:00
DX: R10.13 Epigastric pain (principal); R11.0 Nausea; K21.9 Gastro-esophageal reflux disease without esophagitis; I10 Essential (primary) hypertension
CPT/HCPCS: 36415; 76700; 80053; 81003; 83690; 84703; 85025; 96361; 96374; 96375; 99284; J2405; J7030

== ENCOUNTER 2021-02-24 02:58 | Emergency (ER) | payer MEDICAID ==
[~2021-02-24] VITALS: Ht 167.6 cm; Wt 83.9 kg
[~2021-02-24 02:58] MED LIST changes: +MULT-508 PO
--- NOTE | 2021-02-24 03:19 | NUR ---
PT C/O OF CONGESTION, COUGH, AND SORE THROAT. AND PAIN IN CHEST FROM COUGHING. PT FATIGUED, NAUSEA OCCASIONALLY, AND DIARRHEA. ATTACHED TO MONITORS. VSS. NADN. BED IN LOW, RAILS ENGAGED, CALL LIGHT ON LAP.
[2021-02-24 05:05] VITALS: BP 107/62
== END 2021-02-24 05:11 | disposition home or self-care (01) ==
LOC: ED 03:14
DX: J20.9 Acute bronchitis, unspecified (principal); R06.02 Shortness of breath; Z20.822 Contact with and (suspected) exposure to COVID-19; F17.210 Nicotine dependence, cigarettes, uncomplicated; J06.9 Acute upper respiratory infection, unspecified
CPT/HCPCS: 71045; 87081; 87880; 99284; 99406; U0003; U0005